=== PATIENT | female | born 1990 | race Caucasian/White ===

== ENCOUNTER → 2020-06-10 | Outpatient (CLI) | payer BC ==
[~2020-06-10] MED LIST: ACET1TAB43 PO; DOCU100C37 PO; IBUP-1773 PO; PREN-37 PO
--- NOTE | 2020-06-10 14:07 | Diagnostic Imaging Report ---
PROCEDURE: CT head without contrast. TECHNIQUE: Multiple contiguous axial images were obtained through the brain without the use of intravenous contrast. Auto Exposure Controls were utilized during the CT exam to meet ALARA standards for radiation dose reduction. INDICATION: Headaches. Muscle weakness. Fatigue. COMPARISON: CT head without contrast from 03/15/2013. FINDINGS: No evidence of a territorial infarction. No intracranial hemorrhage, mass effect, hydrocephalus, or extra-axial fluid collections. Osseous structures are intact. Paranasal sinuses and mastoids are clear. IMPRESSION: Negative head CT. Findings discussed with Juliet Kurtz APRN, at 02:03 p.m. on 06/10/2020. Dictated by: Dictated on workstation # [id number]
== END ==
LOC: RAD 13:10
PROVIDERS: ATTEND Nurse Practitioner Family
DX: M62.81 Muscle weakness (generalized) (principal); E86.0 Dehydration; N30.01 Acute cystitis with hematuria; R53.83 Other fatigue; R51.9 Headache, unspecified
CPT/HCPCS: 70450

== ENCOUNTER 2020-08-27 14:24 | Outpatient (RCR) | payer BC | END 2020-10-01 14:00 | disposition home or self-care (01) | PROVIDERS: ATTEND Student in an Organized Health Care Education/Training Program | DX: G61.0 Guillain-Barre syndrome (principal) ==

== ENCOUNTER 2021-09-15 05:30 | Outpatient (CLI) | payer BC ==
[~2021-09-15] VITALS: Ht 162.6 cm; Wt 59.1 kg
[~2021-09-15 05:30] MED LIST changes: +ACET-11 PO; -ACET1TAB43 PO
[2021-09-15] MEDS ORDERED: NORG1TAB16 PO (14:34)
== END 2021-09-15 14:42 | disposition home or self-care (01) ==
LOC: PREOP 05:30
PROVIDERS: ATTEND Obstetrics & Gynecology
DX: Z01.818 Encounter for other preprocedural examination (principal)

== ENCOUNTER 2021-09-22 06:09 | Day surgery (SDC) | payer BC ==
[2021-09-22] VITALS (9 sets, daily range): BP systolic 94–107; BP diastolic 62–85
[~2021-09-22] VITALS: Ht 162.6 cm; Wt 59.1 kg
[~2021-09-22 06:09] MED LIST changes: +NORG1TAB16 PO
[2021-09-22] MEDS ORDERED: LACTATED RINGERS 1,000 ML IV PRN (06:15)
[2021-09-22 07:06] LABS: BASOPHILS % (AUTO) 1 % (0-10); EOSINOPHILS # (AUTO) 0.2 10^3/uL (0.0-0.3); EOSINOPHILS % (AUTO) 2 % (0-10); HEMATOCRIT 40 % (35-52); LYMPHOCYTES # (AUTO) 2.2 10^3/uL (1.0-4.0); LYMPHOCYTES % (AUTO) 32 % (12-44); MEAN CORPUSCULAR HEMOGLOBIN 30 pg (25-34); MEAN CORPUSCULAR HGB CONC 33 g/dL (32-36); MEAN CORPUSCULAR VOLUME 92 fL (80-99); MEAN PLATELET VOLUME 10.9 fL (9.0-12.2); MONOCYTES # (AUTO) 0.9 10^3/uL (0.0-1.0); MONOCYTES % (AUTO) 13 % (0-12); NEUTROPHILS # (AUTO) 3.6 10^3/uL (1.8-7.8); NEUTROPHILS % (AUTO) 52 % (42-75); PLATELET COUNT 207 10^3/uL (130-400); WHITE BLOOD COUNT 6.9 10^3/uL (4.3-11.0)
[2021-09-22] MEDS ORDERED: MIDAZOLAM 2 MG/2 ML (VERSED) VIAL ONE (07:06)
[2021-09-22] MEDS ORDERED: LIDOCAINE PF 2% 5 ML (XYLOCAINE) VIAL ONE (07:06)
[2021-09-22] MEDS ORDERED: ONDANSETRON 4 MG/2 ML (SDV) Z0FRAN ONE (07:06)
[2021-09-22] MEDS ORDERED: proPOfol 200 MG/20 ML (DIPRIVAN) VIAL IV ONE (07:06)
[2021-09-22] MEDS ORDERED: fentaNYL INJ 100 MCG/2 ML AMP ONE (07:06)
[2021-09-22] MEDS ORDERED: BUP/EPI 0.5% 1:200,000 (MARCAINE) 10ML VIAL IJ ONE (07:07)
--- NOTE | 2021-09-22 07:15 | Progress Note-Pre Operative ---
Pre-Operative Progress Note H&P Reviewed The H&P was reviewed, patient examined and no changes noted. Date Seen by Provider: Sep 22, 2021 Time Seen by Provider: 07:05 Date H&P Reviewed: Sep 22, 2021 Time H&P Reviewed: 07:05 Pre-Operative Diagnosis: CIS of cervix ERNA MICHAEL DO Sep 22, 2021 07:15
--- NOTE | 2021-09-22 07:24 | Discharge Inst-Women's Service ---
Discharge Inst-Women's Serv Depart Medication/Instructions New, Converted or Re-Newed RX: Transmitted to Pharmacy Problems Reviewed?: Yes Consults/Follow Up Additional Follow Up: Yes Orders/Referrals With Dr. Michael in 10-14 days Activity Activity: Activity as Tolerated Driving Instructions: You May Drive NO SMOKING: NO SMOKING Nothing Inside Vagina: No Douching, No [place], No Tampons Diet Discharge Diet: No Restrictions Symptoms to Report to : Bleeding Excessive, Pain Increased, Fever Over 101 Degrees F, Vaginal Bleeding Increase, Questions/Concerns For Any Problems or Questions: Contact Your Physician ERNA MICHAEL DO Sep 22, 2021 07:24
[2021-09-22] MEDS ORDERED: IBUP-1773 PO (07:25)
[2021-09-22] MEDS ORDERED: ACHD5005 PO (07:25)
[2021-09-22] MEDS ORDERED: HYDROcodone/APAP 5 MG/325 MG (LORTAB) TAB PO PRN (07:30)
[2021-09-22] MEDS ORDERED: D5 LR IV SOLUTION 1,000 ML IV SCH (07:30)
[2021-09-22] MEDS ORDERED: KETOROLAC 30 MG/ML VIAL IVP ONE (07:30)
[2021-09-22] MEDS ORDERED: ONDANSETRON 4 MG/2 ML (SDV) Z0FRAN IVP PRN ×2 (07:30→08:15)
[2021-09-22] MEDS ORDERED: SEVOFLURANE (ULTANE) 15 ML INHAL SOLN ONE ×2 (07:58→08:07)
[2021-09-22] MEDS ORDERED: morphine INJ 10 MG/ML 1ML (SYR OR VIAL) IVP ONE (08:15)
--- NOTE | 2021-09-22 10:47 | Anesthesia-General Post-Op ---
General Patient Condition Mental Status/LOC: Same as Preop Cardiovascular: Satisfactory Nausea/Vomiting: Absent Respiratory: Satisfactory Pain: Controlled Complications: Absent Post Op Complications Complications None Follow Up Care/Instructions Patient Instructions None needed. Anesthesia/Patient Condition Patient Condition Patient was doing well after the procedure, no complaints, stable vital signs, no apparent adverse anesthesia problems. No complications reported per nursing. AYLIN DORADO 20, 2022 10:47
--- NOTE | 2021-09-22 18:06 | OPERATIVE REPORT ---
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 PROCEDURE: Cold knife conization. SURGEON: Rasheed Meyers DO ANESTHESIA: LMA. ESTIMATED BLOOD LOSS: 100 mL. URINE OUTPUT: 50 mL drained at the end of the procedure. FLUIDS: 1800 mL of lactated Ringer's solution. FINDINGS: Grossly normal-appearing external female genitalia, grossly normal appearing uterus. SPECIMEN SENT: Cervical conization biopsy. INDICATIONS FOR PROCEDURE: This 30-year-old female is a patient who had sought annual care in my office. She had an abnormal Pap smears and cannot rule out high grade followed by a colposcopy that revealed carcinoma in situ. I discussed with the patient conization biopsy, probable need for a cold knife versus LEEP due to concerns of positive margins. I discussed with the patient conization biopsy via cold knife cone. Risks of procedure were discussed with the patient in detail and after all of her questions were answered, she was scheduled. Consent was obtained in the preoperative area and the patient was taken to the operating room. OPERATIVE REPORT IN DETAIL: Once in the operating room, anesthesia was found to be adequate, placed in dorsal lithotomy position, prepped and draped in normal sterile fashion. Timeout was performed. Weighted speculum was inserted to the patient's vagina. Right angle retractor was used to visualize the cervix, which was grasped 12 o'clock position using a single tooth tenaculum. I then stained the cervix using Lugol's solution. This allows me to identify the margins of the transformation zone. I then performed paracervical block at 3 and 9 o'clock positions on the cervix. Care was taken to aspirate before injecting, 10 mL of 0.25% Marcaine are injected into each site. I then also injected the cervical stroma using the same concentration, another 10 mL were used to infiltrate diffusely, control bleeding during the conization biopsy. I then placed lateral sutures of 3-0 Vicryl suture to help ligate the blood supply to the cervix as well. These were both placed at 3 and 9 o'clock positions. Once these were both in place, I made a circular incision using 11-blade knife around the margins of the transformation zone and took this deep down the endocervix using Basurto scissors, resecting a cone-shaped biopsy from the cervix, after which the ball cautery is used to cauterize the margins of dissection in the cut planes. I then placed three Sturmdorf stitches to control bleeding around the margins of the cervix as well. This was done using 2-0 Vicryl suture, after which there was no active bleeding noted. I then covered the planes of dissection as well with astringent solution. All instruments were then removed from the patient's vagina. There was no active bleeding noted. The patient tolerated the procedure well and sent to recovery area in stable condition. Lap and sponge counts were correct at the end of the procedure. Instrument counts correct as well. Job ID: [id number] DocumentID: [id number] Dictated Date: 09/22/2021 09:51:10 Medical Numerical Control Operator Date: 09/22/2021 18:05:43 Dictated By: DO RHODA FLORES
--- NOTE | 2021-09-30 11:41 | History & Physical-Surgical ---
HPO-Surgical History of Present Illness Chief Complaint: CIS of cervix Diagnosis/Surgical Indication: CIS of cervix Procedure: COLD KNIFE CONIZATION Date of Surgery: Sep 22, 2021 Weight (Pounds): 162 Height (Feet): 5 Height (Inches): 3.00 Allergies and Home Medications Allergies Coded Allergies: No Known Drug Allergies (Unverified , 09/15/21) Patient Home Medication List Home Medication List Reviewed: Yes Hydrocodone Bit/Acetaminophen (HYDROcodone/APAP 5 MG/325 MG TAB) 1 Tab Tab, 1 EA PO Q4H PRN for PAIN-MODERATE (5-7) Prescribed by: ERNA MICHAEL on 09/22/21 0726 Ibuprofen (Ibuprofen) 600 Mg Tablet, 600 MG PO Q6H Prescribed by: ERNA MICHAEL on 09/22/21 0725 Norgestrel-Ethinyl Estradiol (Cryselle-28 Tablet) 0.3 Mg-30 Mcg Tablet, 1 EACH PO UD, (Reported) Entered as Reported by: HORTENCIA ESPAÑA on 09/15/21 0564 Past Xmpahua-Zsefey-Lnsvie Hx Patient Social History 2nd Hand Smoke Exposure: No Recent Hopitalizations: No Immunizations Up To Date Tetanus Booster (TDap): Unknown Pediatric: Yes Seasonal Allergies Seasonal Allergies: No Surgeries No Respiratory No Currently Using CPAP: No Currently Using BIPAP: No Cardiovascular No Neurological No Reproductive System Hx Reproductive Disorders: No Sexually Transmitted Disease: No HIV/AIDS: No Genitourinary No Gastrointestinal No Musculoskeletal Yes (nose) Fractures Endocrine History of Endocrine Disorders: No HEENT History of HEENT Disorders: No Cancer No Psychosocial History of Psychiatric Problem: No Integumentary History of Skin or Integumenta: No Blood Transfusions History of Blood Disorders: No Adverse Reaction to a Blood Tr: No Family Medical History Family Hx: Patient reports no known family medical history. Exam Vital Signs Capillary Refill : General Appearance: Alert, Oriented X3 HEENT: Atraumatic Respiratory: Clear to Auscultation Cardiovascular: Regular Rate Abdominal: Normal Bowel Sounds Extremities: No Clubbing Skin: No Rashes, No Breakdown Neuro: Normal Gait, Normal Speech, Normal Tone Psych/Mental Status: Mental Status NL Assessment/Plan Assessment and Plan Plan: [facility] Admission Diagnosis Diagnosis: CIS of the Cervix Admission Status: Other (Same Day Surgery) ERNA MICHAEL DO Sep 30, 2021 11:41 am
== END 2021-09-22 09:45 | disposition home or self-care, planned readmission (81) ==
LOC: SDC 06:09
PROVIDERS: ATTEND Obstetrics & Gynecology
DX: D06.9 Carcinoma in situ of cervix, unspecified (principal)
CPT/HCPCS: 36415; 84703; 85025; 86850; 86900; 86901; 87081; 88307